=== PATIENT | male | born 1965 | race Caucasian/White ===

== ENCOUNTER 2019-02-11 07:53 | Day surgery (SDC) | payer SELFPAY ==
[2019-02-09 18:12] VITALS: BMI 24.7
[~2019-02-11 07:53] MED LIST: HEPARIN SODIUM,PORCINE 5,000 UNIT/ML 1 ML VIAL SQ ONE; ceFAZolin IN SWFI 2 GM/20 ML SYRINGE IVP ONE
[2019-02-11] MEDS ORDERED: LACTATED RINGERS 1,000 ML IV ONE ×4 (08:24→10:13)
[2019-02-11] MEDS ORDERED: DEXAMETHASONE SOD PHOSPHATE 10 MG/ML 1 ML VIAL IV ONE (08:40)
[2019-02-11] MEDS ORDERED: ONDANSETRON 4 MG/2 ML VIAL IVP ONE (08:40)
[2019-02-11] MEDS ORDERED: HEPARIN SODIUM,PORCINE 5,000 UNIT/ML 1 ML VIAL SQ ONE (08:40)
[2019-02-11 08:47] LABS: Basophils # (A) 0.1 k/uL (0-0.2); Basophils % (A) 1 %; Eosinophils # (A) 0.4 k/uL (0-0.7); Eosinophils % (A) 4 %; HGB 18.8 gm/dL (13.0-17.5); Lymphocytes # (A) 2.3 k/uL (1.0-4.8); Lymphocytes % (A) 23 %; MCH 31.4 pg (25.0-35.0); MCHC 32.4 g/dL (31.0-37.0); MCV 96.9 fL (80.0-100.0); Mean Platelet Volume 8.2; Monocytes # (A) 0.6 k/uL (0-1.0); Monocytes % (A) 6 %; Neutrophils # (A) 6.6 k/uL (1.3-7.7); Neutrophils % (A) 65 %; Platelet Count 173 k/uL (150-450); RBC 5.98 m/uL (4.30-5.90); RDW 14.4 % (11.5-15.5); WBC 10.2 k/uL (3.8-10.6)
--- NOTE | 2019-02-11 09:06 | P.GSHP ---
History of Present Illness H&P Date: 02/11/19 Chief Complaint: Right inguinal hernia This a 53-year-old male who's developed a right inguinal hernia. Patient presents today for laparoscopic robotic-assisted repair of right inguinal hernia. Past Medical History Past Medical History: GERD/Reflux, Hypertension, Vascular Disorder Additional Past Medical History / Comment(s): VARIABLE BLOOD PRESSURES, MONITORS BLOOD PRESSURE DAILY, TAKES RX PRN ONLY. RT INGUINAL HERNIA. History of Any Multi-Drug Resistant Organisms: None Reported Past Surgical History: Tonsillectomy Additional Past Surgical History / Comment(s): PTBA W/ STENT LT FEMORAL 2014 X3. COSMETIC SURG. Past Anesthesia/Blood Transfusion Reactions: No Reported Reaction Smoking Status: Current every day smoker - Past Family History Mother Family Medical History: No Reported History Medications and Allergies Home Medications Medication Instructions Recorded Confirmed Type Aspirin 325 mg PO DAILY 02/09/19 02/09/19 History Garlic 1 each PO DAILY 02/09/19 02/09/19 History Ibuprofen [Advil] 400 mg PO DAILY 02/09/19 02/09/19 History Losartan [Cozaar] 50 mg PO DAILY PRN 02/09/19 02/11/19 History Multivitamins, Thera [Multivitamin 1 tab PO DAILY 02/09/19 02/09/19 History (formulary)] Zantac Otc (Unknown Dose) 1 tab PO DAILY PRN 02/09/19 History Allergies Allergy/AdvReac Type Severity Reaction Status Date / Time No Known Allergies Allergy Verified 02/11/19 08:07 Surgical - Exam Vital Signs Temp Pulse Resp BP Pulse Ox 97.1 F L 77 17 148/83 98 02/11/19 08:16 02/11/19 08:16 02/11/19 08:16 02/11/19 08:16 02/11/19 08:16 - General well developed, well nourished, no distress - Eyes PERRL - ENT normal pinna - Neck no masses - Respiratory normal expansion - Cardiovascular Rhythm: regular - Abdomen Evidence of a fem-fem bypass Abdomen: soft, non tender Hernia: inguinal (Reducible right inguinal hernia) Results - Labs 02/11/19 08:22 Abnormal Lab Results - Last 24 Hours (Table) 02/11/19 Range/Units 08:22 RBC 5.98 H (4.30-5.90) m/uL Hgb 18.8 H (13.0-17.5) gm/dL Hct 58.0 H* (39.0-53.0) % Assessment and Plan Assessment: Right inguinal hernia. We'll perform laparoscopic robotic-assisted repair.
[2019-02-11] MEDS ORDERED: NEOSTIGMINE 1 MG/ML 10 ML VIAL ONE (09:19)
[2019-02-11] MEDS ORDERED: PROPOFOL 10 MG/ML 20 ML VIAL IV ONE (09:19)
[2019-02-11] MEDS ORDERED: LIDOCAINE 1% INJ 10MG/ML (20 ML MDV) ONE (09:19)
[2019-02-11] MEDS ORDERED: MIDAZOLAM 2 MG/2 ML VIAL ONE (09:19)
[2019-02-11] MEDS ORDERED: fentaNYL (PF) 50 MCG/ML 2 ML AMP ONE (09:19)
[2019-02-11] MEDS ORDERED: SUCCINYLCHOLINE CHLORIDE 100 MG/5 ML SYR IV ONE (09:19)
[2019-02-11] MEDS ORDERED: ROCURONIUM BROMIDE 10 MG/ML 10 ML VIAL IV ONE (09:19)
[2019-02-11] MEDS ORDERED: GLYCOPYRROLATE 0.2 MG/ML 2 ML VIAL ONE (09:19)
[2019-02-11] MEDS ORDERED: BUPIVACAIN-EPI 0.5%-1:200,000 30 ML VIAL SQ ONE ×2 (09:43→09:47)
--- NOTE | 2019-02-11 10:21 | P.OP ---
Date of Procedure: 02/11/19 Preoperative Diagnosis: Right inguinal hernia Postoperative Diagnosis: Right inguinal hernia Procedure(s) Performed: Laparoscopic robotic of right inguinal hernia Anesthesia: CORBY Surgeon: Pola Reveles Estimated Blood Loss (ml): 5 Pathology: none sent Condition: stable Disposition: PACU Description of Procedure: The patient was placed on the operating table in the supine position. The patient received general anesthesia. The patient's abdomen was prepped and draped in usual sterile fashion. The skin was anesthetized 1% local Xylocaine at the incision sites. Using an 11 blade a skin incision was made at the umbilicus. The fascia was grasped with a Jonh and then the peritoneal cavity was entered with the Veress needle. Position of the Veress needle was confirmed with a positive drop test. After adequate insufflation a 5 mm trocar was placed into the peritoneal cavity. The Laparoscope was placed the peritoneal cavity. And a robotic 8 mm trocar was placed in the right lateral position and then another 8 mm robotic trochars placed in the left lateral position. The original 5 mm trocar was exchanged for a 12 mm trocar. The patient was placed in reverse Trendelenburg and then the patient was docked to the robot. Next the peritoneum over top of the hernia was incised and then using blunt and sharp dissection and electrocautery the hernia sac was dissected free from the floor of the inguinal canal. The hernia sac was completely reduced into the peritoneal cavity. And then using the Pro hog ribber mesh the hernia was repaired. The peritoneum was then sutured with 2-0V lock suture. The patient was then undocked the robot. The needle was withdrawn from the peritoneal cavity. The umbilical trocar site was closed with 0 Ethibond suture. The skin was closed interrupted 3-0 Monocryl suture. Dermabond dressing was applied. Patient was sent to recovery in stable condition.
[2019-02-11 10:27] VITALS: TEMP 97.9
[2019-02-11 10:49] VITALS: RESP 18
[2019-02-11] MEDS ORDERED: HYDROcodone/APAP 5-325MG 1 EACH TAB PO ONE (11:18)
[2019-02-11 11:47] VITALS: BP 117/80; PULSE 71
== END 2019-02-11 12:30 | disposition home or self-care (01) ==
LOC: OR 07:53
PROVIDERS: ATTEND Surgery
DX: K40.90 Unilateral inguinal hernia, without obstruction or gangrene, not specified as recurrent (principal); K21.9 Gastro-esophageal reflux disease without esophagitis; I10 Essential (primary) hypertension; I73.9 Peripheral vascular disease, unspecified; Z95.820 Peripheral vascular angioplasty status with implants and grafts; I99.8 Other disorder of circulatory system; F17.210 Nicotine dependence, cigarettes, uncomplicated; Z79.1 Long term (current) use of non-steroidal anti-inflammatories (NSAID); Z79.82 Long term (current) use of aspirin; Z79.899 Other long term (current) drug therapy
CPT/HCPCS: 49650; S2900; 85025

== ENCOUNTER → 2023-03-22 | Outpatient (CLI) | payer BC ==
[2023-03-23 02:04] LABS: HCT 50.4 % (39.6-50.0); HGB 16.6 d/dL (13.0-17.0); MCH 33.9 pg (27.0-32.0); MCHC 32.9 d/dL (32.0-37.0); MCV 103.1 FL (80.0-97.0); Mean Platelet Volume 10.9 FL (9.5-12.2); NRBC Per 100 WBC 0 X 10*3/uL (0.00-0.01); Platelet Count 124 X 10*3/uL (140-440); RBC 4.89 X 10*6/uL (4.40-5.60); RDW 12.6 % (11.5-14.5); WBC 6.01 X 10*3/uL (4.50-10.00)
[2023-03-23 02:17] LABS: Blood Urea Nitrogen 15.3 mg/dL (9.0-27.0); Chloride 101 mmol/L (96-109); Potassium 4.6 mmol/L (3.5-5.5); Sodium 139 mmol/L (135-145)
== END | disposition home or self-care (01) ==
LOC: LABPAT 11:51
PROVIDERS: ATTEND Internal Medicine Interventional Cardiology
DX: Z01.812 Encounter for preprocedural laboratory examination (principal); I25.10 Atherosclerotic heart disease of native coronary artery without angina pectoris
CPT/HCPCS: 80051; 82565; 84520; 85027

== ENCOUNTER 2023-03-27 07:44 | Day surgery (SDC) | payer BC ==
[2023-03-21 11:53] VITALS: BMI 25.8
[~2023-03-27 07:44] MED LIST changes: +ALPRAZolam 0.5 MG TAB PO PRN; +ASPIRIN 325 MG TAB PO ONE; +ATORVASTATIN 80 MG TAB PO ONE; +HEPARIN SODIUM,PORCINE (1 ML) 2,500 UNIT in SODIUM CHLORIDE 0.9% 250 ML IRRIGATION PRN; +HEPARIN SODIUM,PORCINE 10,000 UNIT in SODIUM CHLORIDE 0.9% 1,000 ML IRRIGATION PRN; -HEPARIN SODIUM,PORCINE 5,000 UNIT/ML 1 ML VIAL SQ ONE; +NITROGLYCERIN SL TABS 0.4 MG TAB SUBLINGUAL PRN; +SODIUM CHLORIDE 0.9% 1,000 ML in EMPTY BAG 1 BAG IV SCH; -ceFAZolin IN SWFI 2 GM/20 ML SYRINGE IVP ONE
[2023-03-27] MEDS ORDERED: SODIUM CHLORIDE 0.9% 1,000 ML IV ONE (07:57)
[2023-03-27] MEDS: ALPRAZolam 0.25 MG TAB PO PRN ×2 (08:05→13:44)
[2023-03-27 08:21] VITALS: RESP 16; TEMP 98.3
[2023-03-27] MEDS ORDERED: LIDOCAINE 1% INJ 10MG/ML (20 ML MDV) ONE (09:31)
[2023-03-27] MEDS ORDERED: HEPARIN SODIUM 1,000 UN/ML (10ML VL) ONE (09:31)
[2023-03-27] MEDS ORDERED: VERAPAMIL 2.5 MG/ML 2 ML AMP ONE (09:33)
[2023-03-27] MEDS ORDERED: LIDOCAINE 1% INJ 10MG/ML (5 ML VIAL-PF) SQ ONE ×2 (09:35)
[2023-03-27] MEDS ORDERED: MIDAZOLAM 2 MG/2 ML VIAL IVP ONE (09:35)
[2023-03-27] MEDS ORDERED: IOPAMIDOL-370 100ML BTL INJ ONE (09:52)
[2023-03-27] MEDS ORDERED: RX INFO: IV CONTRAST WAS GIVEN 1 EACH MISC MISCELLANE PRN (10:04)
[2023-03-27] MEDS ORDERED: SODIUM CHLORIDE 0.9% 1,000 ML IV SCH (10:15)
--- NOTE | 2023-03-27 11:36 | P.PCN ---
Date of Procedure: 03/27/23 Operative Findings: CARDIAC CATHETERIZATION PERFORMING PHYSICIAN: Chris Narayan MD, RPVI PROCEDURE PERFORMED: 1. Selective right and left coronary angiogram 2. Left heart catheterization 3. Ultrasound-guided access of the right common femoral artery INDICATION: Chest discomfort concerning for angina and this 57-year-old gentleman who is known to have CAD who underwent stenting of the RCA in [facility] several years ago and also known lower extremities twice a day with known occluded right SFA status post right femoral to popliteal bypass and also femoral to femoral bypass. Beside that the patient does have hypertension and dyslipidemia and smoking. COMPLICATION: None APPROACH: Right common femoral artery LEVEL OF SEDATION: Moderate with sedation in length of 20 minutes PROCEDURE DESCRIPTION: After obtaining an informed consent, the patient was brought to cardiac medical laboratory technical officer. Local anesthesia was performed using lidocaine subcutaneously. The right common femoral artery was cannulated using Seldinger technique, under ultrasound guidance, the guidewire passed easily, following that we advanced a 6 [place]ruguayan sheath dilator assembly, the wire and dilator were removed and sheath was flushed. Selective right and left coronary angiogram using a 6-Uruguayan JR4 and JL catheters. Following that we did left heart catheterization using 6-[place]ruguayan pigtail ca theter. The procedure was completed there was no complication. SELECTIVE CORONARY ANGIOGRAM: The right coronary artery: Large caliber vessel and a dominant vessel. The proximal to mid RCA is a stented with severe diffuse in-stent restenosis most prominent in the midportion. The RCA distally has mild disease only and bifurcates into PDA and PLV branches. Definitely there was dampening in the waveform point engaging the right coronary artery using 5-Uruguayan catheter. Left main: Is angiographically normal. Bifurcates into an LCx and LAD The left circumflex: Large caliber vessel non-dominant vessel. The LCx has mild disease only. Gives rises into an auto branch which has an ostial lesion appears to be in the range of 80-90%. The left anterior descending artery: The proximal LAD has [id number] disease only. The mid LAD has a critical lesion appears to be in the range of 99.9%. The LAD after that become a medium caliber vessel but probably is undersized because his under field. HEMODYNAMICS: The LVEDP was 14 mmHg was no significant gradient across aortic valve CONCLUSION: 1. Severe triple-vessel coronary artery disease 2. Severe in-stent restenosis of the RCA 3. Severe disease involving OM1 of the LCx 4. Severe disease involving the mid LAD POSTPROCEDURE MANAGEMENT: Giving the above anatomy I advised for the patient to be seen by cardiothoracic surgeon for evaluation of CABG. The patient would like to go home today and he would like to talk to his brother before he pursue any further coronary revascularization.
[2023-03-27 14:41] VITALS: BP 123/69; PULSE 67
== END 2023-03-27 16:34 | disposition home or self-care (01) ==
LOC: CATHCVL 07:44
PROVIDERS: ATTEND Internal Medicine Interventional Cardiology
DX: I25.10 Atherosclerotic heart disease of native coronary artery without angina pectoris (principal); I10 Essential (primary) hypertension; E78.5 Hyperlipidemia, unspecified; F17.200 Nicotine dependence, unspecified, uncomplicated; E11.9 Type 2 diabetes mellitus without complications; F17.210 Nicotine dependence, cigarettes, uncomplicated; I73.9 Peripheral vascular disease, unspecified; Z95.5 Presence of coronary angioplasty implant and graft; Z79.01 Long term (current) use of anticoagulants; Z79.899 Other long term (current) drug therapy
CPT/HCPCS: 93458; 76937; C1769; C1894; J2250; J2001; Q9967

== ENCOUNTER 2023-06-19 10:33 | Day surgery (SDC) | payer BC ==
[2023-06-17 11:43] VITALS: BMI 25.5
[~2023-06-19 10:33] MED LIST changes: +ALPRAZolam 0.25 MG TAB PO PRN; -ALPRAZolam 0.5 MG TAB PO PRN; -ASPIRIN 325 MG TAB PO ONE; +ASPIRIN 325 MG TAB PO STA; -ATORVASTATIN 80 MG TAB PO ONE; -SODIUM CHLORIDE 0.9% 1,000 ML in EMPTY BAG 1 BAG IV SCH
[2023-06-19] MEDS: ALPRAZolam 0.5 MG TAB PO PRN ×2 (11:02→21:26)
[2023-06-19 11:07] LABS: Basophils # (A) 0.1 k/uL (0-0.2); Basophils % (A) 1 %; Eosinophils # (A) 0.3 k/uL (0-0.7); Eosinophils % (A) 5 %; HGB 17.3 gm/dL (13.0-17.5); Lymphocytes % (A) 37 %; MCH 35.5 pg (25.0-35.0); MCHC 35.3 g/dL (31.0-37.0); MCV 100.5 fL (80.0-100.0); Macrocytosis Slight; Mean Platelet Volume 8.2; Monocytes # (A) 0.3 k/uL (0-1.0); Monocytes % (A) 6 %; Neutrophils # (A) 2.6 k/uL (1.3-7.7); Neutrophils % (A) 50 %; Platelet Count 162 k/uL (150-450); RBC 4.87 m/uL (4.30-5.90); RDW 13.6 % (11.5-15.5); WBC 5.3 k/uL (3.8-10.6)
[2023-06-19] MEDS: SODIUM CHLORIDE 0.9% 1,000 ML in EMPTY BAG 1 BAG IV SCH ×2 (11:19→20:26)
[2023-06-19 11:27] LABS: African American GFR (CKD) >90 (>60 ml/min/1.73 sqM); Anion Gap 10 mmol/L; Blood Urea Nitrogen 20 mg/dL (9-20); Calcium 8.6 mg/dL (8.4-10.2); Carbon Dioxide 23 mmol/L (22-30); Chloride 104 mmol/L (98-107); Glucose 146 mg/dL (74-99); Non-African American GFR(CKD) >90 (>60 ml/min/1.73 sqM); Sodium 137 mmol/L (137-145)
[2023-06-19 11:38] LABS: Potassium 4.2 mmol/L (3.5-5.1)
[2023-06-19] MEDS ORDERED: HEPARIN SODIUM 1,000 UN/ML (10ML VL) ONE (11:47)
[2023-06-19] MEDS ORDERED: VERAPAMIL 2.5 MG/ML 2 ML AMP ONE (11:47)
[2023-06-19] MEDS ORDERED: LIDOCAINE 1% INJ 10MG/ML (20 ML MDV) ONE (11:47)
[2023-06-19] MEDS ORDERED: MIDAZOLAM 2 MG/2 ML VIAL IVP ONE ×2 (11:58)
[2023-06-19] MEDS ORDERED: LIDOCAINE 1% INJ 10MG/ML (5 ML VIAL-PF) SQ ONE (11:58)
[2023-06-19] MEDS: LIDOCAINE 1% INJ 10MG/ML (5 ML VIAL-PF) SQ ONE ×2 (11:58→12:03)
[2023-06-19] MEDS ORDERED: fentaNYL (PF) 50 MCG/ML 2 ML AMP ONE (12:00)
[2023-06-19] MEDS: fentaNYL (PF) 50 MCG/ML 2 ML AMP IVP ONE ×2 (12:01→12:37)
[2023-06-19] MEDS ORDERED: HEPARIN SODIUM 1,000 UN/ML (10ML VL) IVP ONE (12:09)
[2023-06-19] MEDS ORDERED: HYDROmorphone 0.5 MG/0.5 ML SYRINGE IVP ONE ×2 (12:10→12:41)
[2023-06-19] MEDS ORDERED: CLOPIDOGREL 75 MG TAB ONE (12:25)
[2023-06-19] MEDS ORDERED: CLOPIDOGREL 75 MG TAB PO ONE (12:28)
[2023-06-19] MEDS ORDERED: RX INFO: IV CONTRAST WAS GIVEN 1 EACH MISC MISCELLANE PRN (12:49)
[2023-06-19] MEDS ORDERED: ATROPINE SULFATE 0.1 MG/ML 10ML SYRINGE IV PRN (12:49)
[2023-06-19] MEDS ORDERED: PANTOPRAZOLE 40 MG TABLET PO PRN (12:49)
[2023-06-19] MEDS ORDERED: MAG HYDROX/AL HYDROX/SIMETH 30 ML CUP PO PRN (12:49)
[2023-06-19] MEDS ORDERED: NITROGLYCERIN SL TABS 0.4 MG TAB SUBLINGUAL PRN (12:49)
[2023-06-19] MEDS ORDERED: ZOLPIDEM 5 MG TAB PO PRN (12:49)
--- NOTE | 2023-06-19 12:54 | P.PCN ---
Date of Procedure: 06/19/23 Operative Findings: PERCUTANEOUS CORONARY INTERVENTION Performing physician hCris Narayan M.D. Procedure Performed: 1. Successful stenting of the mid RCA using 3.5 x 38 Xience drug-eluting stent with an excellent angiographic results. 2. Successful stending of the proximal RCA using 3.5 x 38 Xience drug-eluting stent with an excellent angiographic result. 3. Adjunctive use of intravascular ultrasound 4. Ultrasound-guided access of the right common femoral artery Indication: Severe CAD with severe instent restenosis involving the RCA in this 58-year-old gentleman who was symptomatic. He also known to have subtotally occluded/chronically occluded LAD in the midportion. He refused to be evaluated for coronary artery that is grafting. Approach: Right common femoral artery Complications: None Level of Sedation: Moderate with a sedation length of 46 minutes Procedure Discussion: After obtaining an informed consent the patient was brought to the cardiac dentures lab technician. The right common femoral artery was cannulated using micropuncture technique under ultrasound guidance the micropuncture wire passed easily then I placed a 6-Greenlandic sheath at the right common femoral artery. After that anticoagulation was initiated using heparin with continuous ACT monitoring. Subsequently I did engage the RCA using JR4 guiding catheter. I did right coronary angiogram which revealed severe in-stent restenosis of the RCA in the proximal and midportion. I wire the RCA using a run-through wire. Then I did intravascular ultrasound which showed that the stent was under expanded and also severe in-stent restenosis. I did a predilatation using initially 2.5 mm noncompliant balloon and subsequently 3 mm noncompliant balloon. Then I deployed in the mid RCA 3.5 x 38 and in the proximal RCA 3.5 x 38 as well stents both stents were overlapped about one to 2 mm. Both stents were deployed under fluoroscopy guidance. I postdilated using 3.5 mm noncompliant balloon. That was performed after a maxwell wire was placed because I tried advancing the balloon over the run-through wire but that was unsuccessful so I have to use a BMW wire. The final angiogram after postdilatation showed excellent angiographic results. The procedure was completed was no complication. Postprocedure Management: 1. Dual antiplatelet therapy for at least 6 months 2. Aggressive cholesterol control 3. Risk factors modification
[2023-06-19] MEDS ORDERED: SODIUM CHLORIDE 0.9% 1,000 ML in EMPTY BAG 1 BAG IV SCH (13:00)
[2023-06-19] MEDS: carvediloL 6.25 MG TAB PO SCH (16:54)
[2023-06-19] MEDS ORDERED: NON FORMULARY DRUG (Icosapent Ethyl [Vascepa] 0.5 GM Capsule) PO SCH (21:00)
[2023-06-20] MEDS: carvediloL 6.25 MG TAB PO SCH (06:05)
[2023-06-20] MEDS: SODIUM CHLORIDE 0.9% 1,000 ML in EMPTY BAG 1 BAG IV SCH (06:05)
[2023-06-20 07:36] LABS: African American GFR (CKD) >90 (>60 ml/min/1.73 sqM); Anion Gap 4 mmol/L; Blood Urea Nitrogen 12 mg/dL (9-20); Calcium 8.4 mg/dL (8.4-10.2); Carbon Dioxide 25 mmol/L (22-30); Chloride 106 mmol/L (98-107); Glucose 170 mg/dL (74-99); Non-African American GFR(CKD) >90 (>60 ml/min/1.73 sqM); Potassium 4.1 mmol/L (3.5-5.1); Sodium 135 mmol/L (137-145)
[2023-06-20 08:26] VITALS: BP 108/87; PULSE 86; RESP 16; TEMP 98
--- NOTE | 2023-06-20 08:40 | P.DS ---
Providers Attending physician: Chris Narayan Consults: 06/19/23 12:50 Consult Physician Routine Consulting Provider: [facility] Consult Reason/Comments: Post Interventional Patient Do you want consulting provider notified?: Already Contacted [facility] The patient is a pleasant 58-year-old gentleman with a past medical history significant for coronary artery disease with a prior stenting who was diagnosed recently was critical disease involving the right coronary artery and chronic occluded LAD He underwent yesterday successful PCI of the right coronary artery. He was seen and evaluated this morning. He is asymptomatic and hemodynamically stable. The right groin is soft and nontender with no bruises. He does have a great right pedal pulse. The patient is going to be discharged home on dual antiplatelet therapy and also he is on oral anticoagulation which going to be decreased into a smaller dose and I will follow-up with the patient next week in the office. He would be on triple therapy for 4 weeks and subsequently aspirin will be dropped and would be continue on anticoagulation and antiplatelet with Plavix. Plan - Discharge Summary Discharge Rx Participant: Yes New Discharge Prescriptions: New Apixaban [Eliquis] 2.5 mg PO BID #180 tab Clopidogrel [Plavix] 75 mg PO DAILY #90 tab Continue Omeprazole 40 mg PO DAILY PRN PRN Reason: Heartburn carvediloL [Coreg] 6.25 mg PO BID icosapent ethyL [Vascepa] 1 gm PO BID Rosuvastatin Calcium 40 mg PO DAILY Aspirin [Hardy Aspirin EC] 81 mg PO DAILY Discontinued Apixaban [Eliquis] 5 mg PO BID Discharge Medication List Aspirin [Hardy Aspirin EC] 81 mg PO DAILY 03/21/23 [History] Omeprazole 40 mg PO DAILY PRN 03/21/23 [History] Rosuvastatin Calcium 40 mg PO DAILY 03/21/23 [History] carvediloL [Coreg] 6.25 mg PO BID 03/21/23 [History] icosapent ethyL [Vascepa] 1 gm PO BID 03/21/23 [History] Apixaban [Eliquis] 2.5 mg PO BID #180 tab 06/20/23 [Rx] Clopidogrel [Plavix] 75 mg PO DAILY #90 tab 06/20/23 [Rx] Follow up Appointment(s)/Referral(s): Chris Narayan MD [STAFF PHYSICIAN] - 06/27/23 4:00 pm (APPPOINTMENT IS AT [facility] Patient Instructions/Handouts: Moderate Sedation (DC), After Radial Heart Catheterization (GEN) Activity/Diet/Wound Care/Special Instructions: No driving for two days Ok to shower tomorrow but no baths, pools, lakes, doing dishes by hand for five days. Signs of infection IE: fever, rash, drainage from puncture site, swelling go to ER/doctor for immediate evaluation. Avoid using right wrist/hand to bend, flex, lift greater than 5 lbs for five days. For Heavy Bleeding of puncture site apply firm direct pressure and return to ER. Do not attempt to drive self. low sodium/low fat diet medications as directed by [facility]
[2023-06-20] MEDS ORDERED: CLOPIDOGREL 75 MG TAB PO SCH (09:00)
[2023-06-20] MEDS ORDERED: ATORVASTATIN 80 MG TAB PO SCH (09:00)
[2023-06-20] MEDS ORDERED: ASPIRIN 81 MG PO SCH (09:00)
== END 2023-06-20 10:07 | disposition home or self-care (01) ==
LOC: CATHCVL 10:33 → 3SCARD 12:44 → CATHCVL 06-20 10:07
PROVIDERS: ATTEND Internal Medicine Interventional Cardiology
DX: T82.855A Stenosis of coronary artery stent, initial encounter (principal); I25.10 Atherosclerotic heart disease of native coronary artery without angina pectoris; Z79.01 Long term (current) use of anticoagulants; Z79.02 Long term (current) use of antithrombotics/antiplatelets; Z79.82 Long term (current) use of aspirin; Z79.899 Other long term (current) drug therapy; Y83.8 Other surgical procedures as the cause of abnormal reaction of the patient, or of later complication, without mention of misadventure at the time of the procedure
CPT/HCPCS: 92978; 76937; 80048 ×2; 85025; C9600; C1769 ×3; C1887 ×2; C1894; C1753; C1874; C1725 ×3; J2250; J2001; J3010; J1644; J1170

== ENCOUNTER → 2024-01-07 | Outpatient (CLI) | payer BC ==
--- NOTE | 2024-01-09 09:22 | US ---
EXAMINATION TYPE: US abdomen complete DATE OF EXAM: 01/07/2024 COMPARISON: NONE CLINICAL INDICATION: Male, 58 years old with history of R10.9 UNSPECIFIED ABDOMINAL PAIN; pressure x 3 years TECHNIQUE: Multiple sonographic images of the abdomen are obtained. FINDINGS: EXAM MEASUREMENTS: Liver Length: 17.9 cm Gallbladder Wall: .2 cm CBD: .3 cm Spleen: 14.1 cm Right Kidney: 11.6 x 4.9 x 5.0 cm Left Kidney: 11.9 x 4.8 x 4.7 cm ENGINEERING VICE PRESIDENT NOTES: Pancreas: Tail obscured by overlying bowel gas Liver: Increased attenuation Gallbladder: No stones seen Evidence for sonographic Campuzano's sign: No CBD: wnl Spleen: Splenomegaly. Right Kidney: Anechoic area upper pole 7.3 x 6.8 x 6.3 cm. Left Kidney: 3.6 x 3.5 x 3.4 cm Upper IVC: wnl Abd Aorta: wnl The liver is homogenous. The intrahepatic portion of the IVC and proximal abdominal aorta are within normal limits. There is no evidence of cholelithiasis. Common bile duct is unremarkable. The visu alized portions of the pancreas are homogenous. The Kidneys are symmetric and free of hydronephrosi s. IMPRESSION: 1. Splenomegaly. 2. Simple right renal cyst.
== END | disposition home or self-care (01) ==
LOC: RADUSWWP 06:47
PROVIDERS: ATTEND Family Medicine
DX: R16.1 Splenomegaly, not elsewhere classified (principal); N28.1 Cyst of kidney, acquired
CPT/HCPCS: 76700

== ENCOUNTER → 2024-06-22 | Outpatient (CLI) | payer BC ==
--- NOTE | 2024-06-22 13:31 | CTL ---
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 Current smoker., Lung cancer screening, History of Smoking/tobacco use. TECHNIQUE: Low dose computed tomography scan was performed through the chest at 1 mm thick sections a nd reconstructed images in multiple planes at 1 mm and [address] DLP: 109.[address] CTDI: 2.9 mGy Automated exposure control for dose reduction was used. CT DIAGNOSTIC QUALITY: Satisfactory FINDINGS: Nodules: Right upper lobe peripheral 4.1 mm pulmonary nodule (series 6, image 29). Adjacent 2.5 mm pulmonary nodule (series 6, image 30). Right middle lobe peripheral 3.3 mm pulmonary nodule (series 6, image 47). Right upper lobe medial 3.3 mm pulmonary nodule (series 6, image 30). Left lower lobe 3.3 mm pulmonary nodule abutting the major fissure (series 6, image 35). LUNGS: COPD: Severity: Mild Fibrosis: Severity: None Lymph nodes: None Other findings: None RIGHT PLEURAL SPACE: Effusion: None Calcification: None Thickening: None Pneumothorax: None LEFT PLEURAL SPACE: Effusion: None Calcification: None Thickening: None Pneumothorax: None HEART: Heart Size: Normal Coronary Calcification: Large Pericardial Effusion: None OTHER FINDINGS: Upper abdomen: Partial visualization of right renal cyst measuring at least 4.8 cm. Bony thorax: [facility] of the mid to lower thoracic spine. Supraclavicular region: None Other: Mild bilateral gynecomastia. IMPRESSION: 1. Few pulmonary nodules measuring less than 5 mm. 2. Mild COPD changes. 3. Large three-vessel coronary calcification calcifications. Indicator of coronary artery disease. CT LUNG RAD AND CT CHEST RECOMMENDATION: Lung-Rad 2 Benign Appearance or Behavior: Continue annual sc reening with LDCT in 12 months. S Modifier (other clinically significant findings): [facility], , 06/22/2024 1:29 PM
== END | disposition home or self-care (01) ==
LOC: RADCTMAIN 13:00
PROVIDERS: ATTEND Family Medicine
CPT/HCPCS: 71271